=== PATIENT | female | born 1945 | race Caucasian/White ===

== ENCOUNTER → 2017-10-17 15:49 | Outpatient (CLI) | payer MEDICARE, OTHER, SELFPAY | PROVIDERS: Family Provider Family Medicine; PCP Family Medicine; Visit Provider Otolaryngology | DX: J02.9 Acute pharyngitis, unspecified (principal) | CPT/HCPCS: 87070; 87077; 87186 ==

== ENCOUNTER 2018-01-22 05:56 | Day surgery (SDC) | payer MEDICARE, OTHER, SELFPAY ==
--- NOTE | 2018-01-10 14:34 | EKG12_ITS ---
Test Reason : PRE-OP Blood Pressure : / mmHG Vent. Rate : 065 BPM Atrial Rate : 065 BPM P-R Int : 126 ms QRS Dur : 086 ms QT Int : 418 ms P-R-T Axes : 062 -04 036 degrees QTc Int : 434 ms Normal sinus rhythm Normal ECG Confirmed by ARNOLD BROWN, KAILEY ([id number]), research editor ADIA PUGH ([id number] on 01/11/2018 12:56:44 PM Referred By: Alfredo De La O Confirmed By:KAILEY BARRETT MD
[2018-01-10 16:20] LABS: Anion Gap 7 (5-15); BUN 22 mg/dL (7-18); Calcium,Total 8.8 mg/dL (8.5-10.1); Chloride 103 mmol/L (98-107); Creatinine, Serum 1.22 mg/dL (0.55-1.02); EST Glomerular Filtration Rate 46 mL/min (>60); Est Glom Filt Rate - Afr Amer 55 mL/min (>60); Glucose 72 mg/dL (74-106); Potassium 3.3 mmol/L (3.5-5.1); Sodium Level 139 mmol/L (136-145)
[2018-01-22 06:34] VITALS: BP 144/77; PULSE 67; RESP 14; TEMP 36.7; O2SAT 95; BMI 31.1
[2018-01-22 06:34] LABS: Hematocrit 41.2 % (37-47); Hemoglobin 13.7 g/dl (12.0-15.0); Mean Corp Hgb Conc 33.3 g/gl (32-36); Mean Corpuscular Hgb 30.8 pg (27.0-32.0); Mean Corpuscular Volume 92.6 fL (81-99); Mean Platelet Vol. 9.8 fl (6.2-12.0); Platelet Count 245 K/mm3 (150-450); RBC Distribution Width CV 12.9 % (11.6-14.6); RBC Distribution Width SD 43.4 fl (35.1-43.9); Red Blood Count 4.45 M/mm3 (4.2-5.4)
[2018-01-22 06:37] LABS: Scan Indicated on CBC? Y/N NO
[2018-01-22 06:41] LABS: Prothrombin Time (Protime)PT. 13.5 SECONDS (11.7-14.9)
[2018-01-22 06:51] LABS: AST(SGOT) 19 U/L (15-37); Alanine Aminotransfer ALT/SGPT 28 U/L (13-56); Albumin, Serum 3.7 g/dL (3.2-5.0); Alkaline Phosphatase 54 U/L (45-117); Bilirubin, Direct 0.16 mg/dL (0.00-0.30); Globulin 4.2 g/dL (2.2-4.2); Protein, Total 7.9 g/dL (6.4-8.2)
--- NOTE | 2018-01-22 07:30 | MASS_PTH ---
PATIENT: KAYLIE GODWIN [place] [facility] [place][id number] AGE/SX: 72/F ROOM: RE01/22/[address]: Dr. Nito De La O MD : 1945 BED: DIS: 01/22/2018 SPEC #: [id number] RECD: 01/22/18 09:14 STATUS: KATHY REBelinda #: [id number] IJEOMA: 01/22/18 07:[address]: Nito De La O DEPT: SURGICAL PATHOLOGY RECD BY: Yfn Avitia ENTERED: 01/22/18 11:51 SP TYPE: Mass OTHR DR: Dr. Cristian Murphy MD Tissues: A - Ethmoid sinus, NOS B - Ethmoid sinus, NOS C - Ethmoid sinus, NOS Procedures: Decalcification bone/plaque Special Stain Group I Surgery Specimen Level IV GMS Stain (control) HEADER OPERATION: Functional endoscopic sinus surgery PRE-OP DIAGNOSIS: Chronic pansinusitis TISSUE SUBMITTED: A ? Sinus mass, B ? Left sinus contents, C ? Right sinus contents MICROSCOPIC DIAGNOSIS A. Sinus mass, biopsy: Fragment of respiratory mucosa with marked acute and chronic inflammation consistent with benign, inflamed mucosal polyp. B. Left sinus contents: Fragment of respiratory mucosa with acute and chronic inflammation and bone. Special stain for fungi is negative for organisms; matched control is appropriate. C. Right sinus contents: Fragment of respiratory mucosa with chronic inflammation. Benign inflamed mucosal polyp. SJ:eamon 01/25/18 MICROSCOPIC DESCRIPTION Slides are reviewed. GROSS DESCRIPTION A - Received in fixative is one container labeled with the patient's name and designated sinus mass. The specimen consists of a fragment of fagan soft tissue measuring 0.3 x 0.2 x 0.1 cm. The specimen is totally submitted in one cassette. B - Received in fixative is one container labeled with the patient's name and designated left sinus contents. The specimen consists of multiple irregular fragments of fagan soft tissue mixed with fragments of bone that in aggregate measure 3 x 2.5 x 0.3 cm. The entire specimen is submitted in one cassette after decalcification. C - Received in fixative is one container labeled with the patient's name and designated right sinus contents. The specimen consists of multiple irregular fragments of fagan soft tissue mixed with fragments of bone that in aggregate measure 3 x 2.5 x 0.3 cm. Collapsed polypoid tissue is also noted measuring 2 x 1 x 0.2 cm. The entire specimen is submitted in two cassettes. Cassette 2 is submitted after decalcification. / DANIEL:eamon 01/22/18 TC:3 CPT: 59938 x2, 69683 x3, 92288
[2018-01-22] MEDS: Oxymetazoline 0.05% 1 SPRAY SPRAY.BTL 15 SPRAY (07:46)
[2018-01-22 08:51] VITALS: BP 132/74; BP 144/77; PULSE 75; RESP 18; TEMP 36.3; O2SAT 93
[2018-01-22 09:00] VITALS: BP 113/77; BP 144/77; PULSE 73; RESP 18; O2SAT 94
[2018-01-22 09:15] VITALS: BP 132/68; BP 144/77; PULSE 71; RESP 16; O2SAT 96
--- NOTE | 2018-01-22 09:15 | PCM.DC ---
You will use the following diet at home:: No restrictions Discharge Activity: Return to Normal Activity Call your doctor if your incision/area has: Increased Pain/ Swelling Additional Dressing/Incision Instructions:: irrigate with normal saline 5-6 times per day Allergies/Adverse Reactions: Allergies rizatriptan [From Maxalt] Allergy (Verified 01/15/18 14:03) Swelling BEE STINGS Allergy (Uncoded 01/15/18 14:39) Swelling Medications to take at Discharge Aspirin [Aspirin EC] 81 mg PO DAILY 01/15/18 Atenolol/Chlorthalidone [Atenolol-Chlorthalidone 50-25] 1 each PO 1800 01/15/18 Calcium Carbonate [Tums] 750 mg PO DAILY 01/15/18 Cholecalciferol (Vitamin D3) [Vitamin D3] 2,000 unit PO DAILY 01/15/18 Loperamide [Imodium] 2 mg PO Q6H PRN PRN 01/15/18 Multivit-Min/FA/Lycopen/Lutein [Centrum Silver Tablet] 1 each PO DAILY 01/15/18 Simvastatin [Zocor] 40 mg PO QHS 01/15/18 Hydrocodone/Acetaminophen [[place] 5-325 Tablet] 1 ea PO Q6H 5 Days #20 tab 01/22/18 Levofloxacin [Levaquin] 750 mg PO DAILY #10 tab 01/22/18 The following prescriptions were given: Levofloxacin [Levaquin] 750 mg PO DAILY #10 tab Hydrocodone/Acetaminophen [[place] 5-325 Tablet] 1 ea PO Q6H 5 Days #20 tab Primary Care Physician: Cristian Murphy MD [Primary Care Provider] - Test Results: Test results from this visit will be discussed in further detail at your follow-up appointment, if applicable. Please Follow Up With: Louis De La O MD When: 1 week
[2018-01-22 09:21] VITALS: BP 133/70; BP 144/77; PULSE 68; RESP 18; TEMP 36.1; O2SAT 96
--- NOTE | 2018-01-22 09:29 | OP.PCM_ITS ---
Problem List (1) Chronic pansinusitis Status: Chronic Report of Operation Date of Procedure: 01/22/18 Pre-Operative Diagnosis: chronic pansinusitis Post-Operative Diagnosis: chronic pansinusitis Surgery/Procedure Performed:: 1. endoscopic maxillary antrostomy with removal of tissue, right and left. 2. frontal sinus exploration with removal of tissue , right and left. 3. endoscopic total ethmoidectomy including sphenoidotomy, right and left. 4. CT guided image navigation Type of Anesthesia:: General Description of Procedure: on the day of the procedure, after appropriate informed consent was obtained, the patient was brought to the operating room and placed in supine position on the operating table. she was placed under general endotracheal anesthesia. the endotracheal tube was secured, the eyes were lubricated. the image guidance facial registration was setup and landmarks confirmed as accurate. the bilateral nasal cavities were decongested with oxymetazoline-soaked pledgets. the zero degree endoscope was used to evaluate the nasal cavities. there is a caudal septal deflection and a posterior perforation. a small amount of granulation tissue from the left natural sphenoid os was biopsied and sent for permanent sectioning. a large amount of crusting in the right posterior nasal cavity was removed. there were no additional masses. the right and left superior attachment of the middle turbinates were injected with lidocaine/epinephrine. on the patient's left, the acclarent balloon sinuplasty system was introduced to the patients middle meatus. transillumination was seen after the light cord was advanced to the frontal area. the balloon was advanced and dilated to 12 lindsey. frontal sinus contents were removed with an upgoing blakesley. an uncinectomy was performed with a alyson elevator and a geetha. the antrostomy was widened with a back biter and contents were evacuated. the remainder of the ethmoid sinuses were gently removed with a curette and an upgoing blakesley. a stankewicz maneuver was performed and the lamina was intact. the sphenoid sinus was entered bluntly with a suction and widened with a mushroom punch. contents were evacuated. on the patient's left, the acclarent balloon sinuplasty system was introduced to the patients middle meatus. transillumination was seen after the light cord was advanced to the frontal area. the balloon was advanced and dilated to 12 lindsey. frontal sinus contents were removed with an upgoing blakesley. an uncinectomy was performed with a alyson elevator and a geetha. the antrostomy was widened with a back biter and contents were evacuated. the remainder of the ethmoid sinuses were gently removed with a curette and an upgoing blakesley. a stankewicz maneuver was performed and the lamina was intact. the sphenoid sinus was entered bluntly with a suction and widened with a mushroom punch. contents were evacuated. the sinonasal cavities were irrigated with normal saline and the patient was awoken from anesthesia and transferred to the PACU in stable condition.
[2018-01-22 10:20] VITALS: BP 144/77
== END 2018-01-22 10:25 | disposition home or self-care (01) ==
LOC: SDC 05:56 → AC 05:56
PROVIDERS: Anesthesiology; Family Provider Family Medicine; PCP Family Medicine; Visit Provider Otolaryngology
PROC: (CPT 31257; principal; 2018-01-22 07:00)
DX: J32.4 Chronic pansinusitis (principal); I10 Essential (primary) hypertension; G43.909 Migraine, unspecified, not intractable, without status migrainosus; K21.9 Gastro-esophageal reflux disease without esophagitis; E78.00 Pure hypercholesterolemia, unspecified; R23.3 Spontaneous ecchymoses; Z86.14 Personal history of Methicillin resistant Staphylococcus aureus infection
CPT/HCPCS: 31257; 31267; 36415; 80048; 80076; 85027; 85610; 85730; 88305; 88311; 88312; 93005; J7120; J2405

== ENCOUNTER → 2018-05-09 13:03 | Outpatient (CLI) | payer MEDICARE, OTHER, SELFPAY | PROVIDERS: Family Provider Family Medicine; PCP Family Medicine; Referring Provider Otolaryngology; Visit Provider Otolaryngology | DX: J32.9 Chronic sinusitis, unspecified (principal) | CPT/HCPCS: 87070; 87077; 87186; 87205 ==

== ENCOUNTER → 2018-05-21 18:38 | Outpatient (CLI) | payer MEDICARE, OTHER, SELFPAY ==
--- NOTE | 2018-05-21 | LES_PTH ---
PATIENT: KAYLIE GODWIN LOC: [facility] U#:[id number] AGE/SX: 80/F ROOM: RE05/21/[address]: Dr. Salvador Conner MD : 1945 BED: DIS: SPEC #: [id number] RECD: 05/21/18 18:40 STATUS: KATHY ADITHYA #: [id number] IJEOMA: 05/21/18 00:[address]: Salvador Conner DEPT: SURGICAL PATHOLOGY RECD BY: Kym Ashton ENTERED: 05/22/18 11:01 SP TYPE: Lesion OTHR DR: Dr. Cristian Murphy MD Tissues: Skin of eyelid, NOS Procedures: Surgery Specimen Level IV HEADER OPERATION: Lesion removal CARLINE PRE-OP DIAGNOSIS: Increased size and lesion CARLINE TISSUE SUBMITTED: Lesion CARLINE MICROSCOPIC DIAGNOSIS Lesion of left upper eyelid, biopsy: Fragments of squamous papilloma. AM:eamon 11/29/18 MICROSCOPIC DESCRIPTION Slides are reviewed. GROSS DESCRIPTION Received in fixative is one container labeled with the patient's name and designated left upper lid. The specimen consists of a polypoid piece of fagan soft tissue measuring 0.3 x 0.2 x 0.1 cm. The specimen is totally submitted in one cassette. / SJ:rg 05/22/18 TC:5 CPT: 53227
--- OUTSIDE RECORDS SUMMARY | 2018-07-17 09:59 | XMS RPT_ITS ---
:1945 Author Organization OHIP Care Team Providers Name Role Phone GABRIEL NIÑO, DR. WILLOW Ugalde Attending Unavailable GABRIEL NIÑO, DR. WILLOW Ugalde Primary Care Unavailable SUSHANT CASTRO Attending Unavailable GABRIEL NIÑO, DR. WILLOW Ugalde Primary Care Unavailable Louis De La O Attending Unavailable Louis De La O Referring Unavailable Josiah Marr Primary Care Unavailable Louis De La O Attending Unavailable Louis De La O Referring Unavailable WILLOW MURPHY Primary Care Unavailable Aravind Cornejo Attending Unavailable Louis De La O Referring Unavailable Louis De La O Attending Unavailable Louis De La O Referring Unavailable WILLOW MURPHY Primary Care Unavailable Salvador Conner Attending Unavailable WILLOW MURPHY Primary Care Unavailable Salvador Conner Referring Unavailable PROBLEMS PROBLEMS DATE TYPE CONDITION / CODE ATTENDING STATUS SOURCE 01/22/2018 Unknown J32.4 - Chronic Wartmann, Active [facility] pansinusitis / [facility] J32.4(ICD-10) Hospital Repository 01/28/2018 Unknown I10 - Essential Chantal, Aravind Active [facility] (primary) [facility] hypertension / Hospital I10(ICD-10) Repository PROCEDURES PROCEDURES No Procedure Records FoundRESULTS RESULTS LESION (CHOOSE SITE) Observed: 05/21/2018 Status: F Source: LANG 12:00 AM [facility] REPOSITORY Patient: KAYLIE GODWIN : 1945 (73/F) Acct Num: [id number] Phys: Ubaldo BROWN,Salvador Unit Num: [id number] Loc: LABSPEC Specimen: [id number] Received: 05/21/181839 Spec Type: Lesion TISSUES 1 TISSUES: Skin of eyelid, NOS GROSS DESCRIPTION Received in fixative is one container labeled with the patient's name and designated left upper lid. The specimen consists of a polypoid piece of fagan soft tissue measuring 0.3 x 0.2 x 0.1 cm. The specimen is totally submitted in one cassette. / SJ:eamon 05/22/18 TC:5 CPT: 69209 HEADER OPERATION: Lesion removal CARLINE PRE-OP DIAGNOSIS: Increased size and lesion CARLINE TISSUE SUBMITTED: Lesion CARLINE MICROSCOPIC DESCRIPTION Slides are reviewed. MICROSCOPIC DIAGNOSIS Lesion of left upper eyelid, biopsy: Fragments of squamous papilloma. AM:eamon 05/23/18 Signed [facility] 05/23/18 <signature on file> Performed By: #### PLES #### [facility] [address] [place], [address] Observed: 05/09/2018 Status: F Source: LANG CULTURE, NOSE 8:30 AM [facility] REPOSITORY Gram Stain Gram Stain 4+ White Blood Cells Rare Gram positive cocci Nasoph. Cult RESULTS CALLED TO MAISHAENT 05/11/18 0850 Stefany Diaz. REPORT READ BACK BY SAME . Copy of report sent to Infection Control Printer [id number] 05/11/18 0733 GARETH. ORGANISM 1: Meth. resistant Staph. aureus Amount Growth 2+ Meth. resistant Staph. aureus: REACTION Benzylpenicillin NF >=0.5 R Cefoxitin *NF + Clindamycin $$ >=8 R Inducable Clindamycin Resistan - Erythromycin $ >=8 R Gentamicin $ <=0.5 S Levofloxacin $ 4 I Linezolid $$$$ 2 S Oxacillin NF >=4 R Tigecycline $$$$ <=0.12 S Rifampin $$ <=0.5 S Tetracycline NF <=1 S Trimethoprim/Sulfametho $ <=10 S Vancomycin $ 1 S (NF) indicates non-formulary drug at [facility]. Approval by Infectious Disease Specialist required before non-formulary drugs may be ordered and/or dispensed. * CLSI guidelines does not recommend testing of cephalosporins. This interpretation is deduced from Beta-lactam/penicillin results. Performed By: #### M100.0900 #### [facility] [address] [facility] [place], [address] OPERATIVE REPORT Observed: 01/25/2018 Status: F Source: [place] 9:26 [facility] REPOSITORY [facility] Medical Records Department [address] [place] [address] Operative Report 01/22/18 0917 MR#: [id number] Acct: [id number] Name: KAYLIE GODWIN Rep #: [id number] : 1945 72 From: Louis De La O MD PCP: Willow Murphy MD Status: [facility] Location: [facility] Problem List (1) Chronic pansinusitis Status: Chronic Report of Operation Date of Procedure: 01/22/18 Pre-Operative Diagnosis: chronic pansinusitis Post-Operative Diagnosis: chronic pansinusitis Surgery/Procedure Performed:: 1. endoscopic maxillary antrostomy with removal of tissue, right and left. 2. frontal sinus exploration with removal of tissue, right and left. 3. endoscopic total ethmoidectomy including sphenoidotomy, right and left. 4. CT guided image navigation Type of Anesthesia:: General Description of Procedure: on the day of the procedure, after appropriate informed consent was obtained, the patient was brought to the operating room and placed in supine position on the operating table. she was placed under general endotracheal anesthesia. the endotracheal tube was secured, the eyes were lubricated. the image guidance facial registration was setup and landmarks confirmed as accurate. the bilateral nasal cavities were decongested with oxymetazoline-soaked pledgets. the zero degree endoscope was used to evaluate the nasal cavities. there is a caudal septal deflection and a posterior perforation. a small amount of granulation tissue from the left natural sphenoid os was biopsied and sent for permanent sectioning. a large amount of crusting in the right posterior nasal cavity was removed. there were no additional masses. the right and left superior attachment of the middle turbinates were injected with lidocaine/epinephrine. on the patient's left, the acclarent balloon sinuplasty system was introduced to the patients middle meatus. transillumination was seen after the light cord was advanced to the frontal area. the balloon was advanced and dilated to 12 lindsey. frontal sinus contents were removed with an upgoing blakesley. an uncinectomy was performed with a alyson elevator and a geetha. the antrostomy was widened with a back biter and contents were evacuated. the remainder of the ethmoid sinuses were gently removed with a curette and an upgoing blakesley. a stankewicz maneuver was performed and the lamina was intact. the sphenoid sinus was entered bluntly with a suction and widened with a mushroom punch. contents were evacuated. on the patient's left, the acclarent balloon sinuplasty system was introduced to the patients middle meatus. transillumination was seen after the light cord was advanced to the frontal area. the balloon was advanced and dilated to 12 lindsey. frontal sinus contents were removed with an upgoing blakesley. an uncinectomy was performed with a alyson elevator and a geetha. the antrostomy was widened with a back biter and contents were evacuated. the remainder of the ethmoid sinuses were gently removed with a curette and an upgoing blakesley. a stankewicz maneuver was performed and the lamina was intact. the sphenoid sinus was entered bluntly with a suction and widened with a mushroom punch. contents were evacuated. the sinonasal cavities were irrigated with normal saline and the patient was awoken from anesthesia and transferred to the PACU in stable condition. 01/25/18925 <Electronically signed by Louis De La O MD> Date Louis De La O MD CC: Willow Murphy MD; Nito De La O MD Signed DISCHARGE INSTRUCTION Observed: 01/22/2018 Status: F Source: [place] 9:16 AM [facility] REPOSITORY [facility] Medical Records Department [address] [facility] [place] [address] Instructions for Home/Discharge Instructions 01/22/18914 MR#: [id number] Acct: [id number] Name: KAYLIE GODWIN Rep #: [id number] : 1945 72 From: Louis De La O MD PCP: Willow Murphy MD Status: REG [facility] You will use the following diet at home:: No restrictions Discharge Activity: Return to Normal Activity Call your doctor if your incision/area has: Increased Pain/ Swelling Additional Dressing/Incision Instructions:: irrigate with normal saline 5-6 times per day Allergies/Adverse Reactions: Allergies rizatriptan [From Maxalt] Allergy (Verified 01/15/18 14:03) Swelling BEE STINGS Allergy (Uncoded 01/15/18 14:39) Swelling Medications to take at Discharge Aspirin [Aspirin EC] 81 mg PO DAILY 01/15/18 Atenolol/Chlorthalidone [Atenolol-Chlorthalidone 50-25] 1 each PO 1800 01/15/18 Calcium Carbonate [Tums] 750 mg PO DAILY 01/15/18 Cholecalciferol (Vitamin D3) [Vitamin D3] 2,000 unit PO DAILY 01/15/18 Loperamide [Imodium] 2 mg PO Q6H PRN PRN 01/15/18 Multivit-Min/FA/Lycopen/Lutein [Centrum Silver Tablet] 1 each PO DAILY 01/15/18 Simvastatin [Zocor] 40 mg PO QHS 01/15/18 Hydrocodone/Acetaminophen [Darlington 5-325 Tablet] 1 ea PO Q6H 5 Days #20 tab 01/22/18 Levofloxacin [Levaquin] 750 mg PO DAILY #10 tab 01/22/18 The following prescriptions were given: Levofloxacin [Levaquin] 750 mg PO DAILY #10 tab Hydrocodone/Acetaminophen [Darlington 5-325 Tablet] 1 ea PO Q6H 5 Days #20 tab Primary Care Physician: Willow Murphy MD [Primary Care Provider] - Test Results: Test results from this visit will be discussed in further detail at your follow-up appointment, if applicable. Please Follow Up With: Louis De La O MD When: 1 week 01/22/18915 <Electronically signed by Louis De La O MD> Date Louis De La O MD CC: Willow Murphy MD MASS (DEFINE AREA) Observed: 01/22/2018 Status: F Source: LANG 7:30 AM [facility] REPOSITORY Patient: KAYLIE GODWIN : 1945 (72/F) Acct Num: [id number] Phys: Nito De La O MD Unit Num: [id number] Loc: [facility] Specimen: [id number] Received: 01/22/18913 Spec Type: Mass TISSUES TISSUES: A. Ethmoid sinus, NOS - SINUS MASS B. Ethmoid sinus, NOS - LEFT SINUS CONTENTS C. Ethmoid sinus, NOS - RIGHT SINUS CONTENTS GROSS DESCRIPTION A - Received in fixative is one container labeled with the patient's name and designated sinus mass. The specimen consists of a fragment of fagan soft tissue measuring 0.3 x 0.2 x 0.1 cm. The specimen is totally submitted in one cassette. B - Received in fixative is one container labeled with the patient's name and designated left sinus contents. The specimen consists of multiple irregular fragments of fagan soft tissue mixed with fragments of bone that in aggregate measure 3 x 2.5 x 0.3 cm. The entire specimen is submitted in one cassette after decalcification. C - Received in fixative is one container labeled with the patient's name and designated right sinus contents. The specimen consists of multiple irregular fragments of fagan soft tissue mixed with fragments of bone that in aggregate measure 3 x 2.5 x 0.3 cm. Collapsed polypoid tissue is also noted measuring 2 x 1 x 0.2 cm. The entire specimen is submitted in two cassettes. Cassette 2 is submitted after decalcification. / SJ:eamon 01/22/18 TC:3 CPT: 77204 x2, 95968 x3, 71870 HEADER OPERATION: Functional endoscopic sinus surgery PRE-OP DIAGNOSIS: Chronic pansinusitis TISSUE SUBMITTED: A Sinus mass, B Left sinus contents, C Right sinus contents MICROSCOPIC DESCRIPTION Slides are reviewed. MICROSCOPIC DIAGNOSIS A. Sinus mass, biopsy: Fragment of respiratory mucosa with marked acute and chronic inflammation consistent with benign, inflamed mucosal polyp. B. Left sinus contents: Fragment of respiratory mucosa with acute and chronic inflammation and bone. Special stain for fungi is negative for organisms; matched control is appropriate. C. Right sinus contents: Fragment of respiratory mucosa with chronic inflammation. Benign inflamed mucosal polyp. SJ:eamon 01/25/18 Signed Gato Gray 01/28/18 <signature on file> Performed By: #### PMA #### [facility] [address] [place] [address]. [place], [address] CBC-COMPLETE BLOOD CNT Collected: 01/22/2018 Status: F Source: [place] NO DIFF 6:28 AM [facility] REPOSITORY TYPE CODE TESTS RESULT OUT OF RANGE REFERENCE UNITS LAB L100.1000 4.4-11.0 K/mm3 Normal WBC 6.0 LAB L100.1200 4.2-5.4 M/mm3 Normal RBC 4.45 LAB L100.1300 12.0-15.0 g/dl Normal HGB 13.7 LAB L100.1400 37-47 % Normal HCT 41.2 LAB L100.1500 81-99 fL Normal MCV 92.6 LAB L100.1600 27.0-32.0 pg Normal MCH 30.8 LAB L100.1700 32-36 g/gl Normal MCHC 33.3 LAB L100.1810 11.6-14.6 % Normal RDW CV 12.9 LAB L100.1820 35.1-43.9 fl Normal RDW SD 43.4 LAB L100.1900 150-450 K/mm3 Normal PLT 245 LAB L100.2000 6.2-12.0 fl Normal MPV 9.8 Performed By: #### L100.0500, L300.3900, L300.4310, L500.3400 #### [facility] [address] [place], [place], [address] PROTHROMBIN TIME W/INR Collected: 01/22/2018 Status: F Source: [place] 6:28 AM [facility] REPOSITORY TYPE CODE TESTS RESULT OUT OF RANGE REFERENCE UNITS LAB L300.4150 11.7-14.9 SECONDS Normal PROTIME 13.5 LAB L300.4200 Normal INR 1.0 Performed By: #### L100.0500, L300.3900, L300.4310, L500.3400 #### [facility] [address] [place], [address] PARTIAL THROMBOPLAST Collected: 01/22/2018 Status: F Source: [place] TIME 6:28 [facility] REPOSITORY TYPE CODE TESTS RESULT OUT OF RANGE REFERENCE UNITS LAB L300.4310 24.1-36.2 Seconds Normal PTT 27.0 Performed By: #### L100.0500, L300.3900, L300.4310, L500.3400 #### [facility] [address] [place], [place], [address] LIVER PROFILE Collected: 01/22/2018 Status: F Source: [place] 6:28 AM [facility] REPOSITORY TYPE CODE TESTS RESULT OUT OF RANGE REFERENCE UNITS LAB L501.1500 6.4-8.2 g/dL Normal T PROT 7.9 LAB L501.1800 3.2-5.0 g/dL Normal ALB 3.7 LAB L501.1950 2.2-4.2 g/dL Normal GLOB 4.2 LAB L501.4100 15-37 U/L Normal AST 19 LAB L501.4305 45-117 U/L Normal ALK P 54 LAB L501.4405 13-56 U/L Normal ALT 28 LAB L501.4600 0.20-1.00 mg/dL Normal T BILI 0.60 LAB L501.4700 0.00-0.30 mg/dL Normal D BILI 0.16 Performed By: #### L100.0500, L300.3900, L300.4310, L500.3400 #### [facility] [address] [facility] [place], [address] 12 LEAD ELECTROCARDIOGRAM Observed: 01/11/2018 Status: F Source: [place] 12:57 PM [facility] REPOSITORY [facility] Cardiovascular Services [address] [place] [address] 12 Lead EKG 01/10/18 1440 MR#: [id number] Acct: [id number] Name: KAYLIE GODWIN Rep #: [id number] : 1945 72 From: Aravind Cornejo MD Attending Dr: Nito De La O MD Status: PRE SDC Ordering Dr: Louis De La O MD Date: 01/10/18 Location: [facility] Sex: F C Admitted: Test Reason : PRE-OP Blood Pressure : / mmHG Vent. Rate : 065 BPM Atrial Rate : 065 BPM P-R Int : 126 ms QRS Dur : 086 ms QT Int : 418 ms P-R-T Axes : 062 -04 036 degrees QTc Int : 434 ms Normal sinus rhythm Normal ECG Confirmed by ARAVIND CORNEJO MD ([id number]), editor in chief newspaper ADIA PUGH ([id number]) on 01/11/2018 12:56:44 PM Referred By: Alfredo De La O Confirmed By:ARAVIND CORNEJO MD 01/11/18 1256 Date Aravind Cornejo MD CC: Willow Murphy MD; Nito De La O MD Signed BASIC METABOLIC Collected: 01/10/2018 Status: F Source: LANG PROFILE (BMP) 2:27 PM [facility] REPOSITORY TYPE CODE TESTS RESULT OUT OF RANGE REFERENCE UNITS LAB L501.0100 74-106 mg/dL Low GLU 72 Result Comment: Please note revised GLUCOSE reference range effective 2017. LAB L501.1000 7-18 mg/dL High BUN 22 LAB L501.1100 0.55-1.02 mg/dL High CREAT,SERUM 1.22 Result Comment: The validity of the calculated GFR AND GFRAA in patients over 70 years has not been determined. Clinical correlation is essential. LAB L501.1110 >60 mL/min Low EST GFR 46 Result Comment: Non- GFR Calc LAB L501.1115 >60 mL/min Low EST GFR - AA 55 Result Comment: GFR Calc LAB L501.1300 10-20 RATIO Normal BUN/CRE 18.0 LAB L501.2200 8.5-10.1 mg/dL CA Normal 8.8 LAB L501.5300 136-145 mmol/L NA Normal 139 LAB L501.5600 3.5-5.1 mmol/L Low K 3.3 LAB L501.5900 98-107 mmol/L CL Normal 103 LAB L501.6100 21.0-32.0 mmol/L Normal CO2 29.0 LAB L501.6200 5-15 Normal GAP 7 Performed By: #### L500.2500 #### [facility] [address] [place], [address] Observed: 10/17/2017 Status: F Source: [place] CULTURE, THROAT 1:50 PM [facility] REPOSITORY Culture, Throat Copy of report sent to Infection Control Printer [id number] 10/20/17 0702 BARBARA. #2 Penicillin is the drug of choice for Beta Streptococcal infections. For Penicillin allergic patients, Erythromycin may be used. ORGANISM 1: Meth. resistant Staph. aureus Amount Growth 3+ ORGANISM 2: Streptococcus group A Amount Growth 1+ A Disk (Conf. Cult) POSITIVE for Group A Strep Meth. resistant Staph. aureus: REACTION Benzylpenicillin NF >=0.5 R Cefoxitin *NF + Clindamycin $$ >=8 R Inducable Clindamycin Resistan - Erythromycin $ >=8 R Gentamicin $ <=0.5 S Levofloxacin $ 4 I Linezolid $$$$ 2 S Oxacillin NF >=4 R Tigecycline $$$$ <=0.12 S Rifampin $$ <=0.5 S Tetracycline NF <=1 S Trimethoprim/Sulfametho $ <=10 S Vancomycin $ <=0.5 S (NF) indicates non-formulary drug at [facility]. Approval by Infectious Disease Specialist required before non-formulary drugs may be ordered and/or dispensed. * CLSI guidelines does not recommend testing of cephalosporins. This interpretation is deduced from Beta-lactam/penicillin results. Performed By: #### M100.1000 #### [facility] [address] [place], [address] CT SINUS Observed: 07/18/2017 Status: F Source: [place] 1:00 PM [facility] RE[facility] ORIGINAL CT SINUS Clinical Statement: CHRONIC SINUSITIS, patient unable to smell for 2 years TECHNIQUE: Multiple-row detector helical CT examination of the paranasal sinuses without IV contrast. Axial, sagittal, and coronal reconstructed images. This exam was performed according to our [facility] dose optimization program, and includes the following measures where applicable: automated exposure control, adjustment of the mAs and/or kVp according to patient size and/or exam, and an iterative reconstruction algorithm. COMPARISON: CTA neck dated 05/03/2010 FINDINGS: Patient is status post ethmoidectomy. There is a small mucoid retention cyst in the right posterior maxillary sinus. The right maxillary ostiomeatal unit is patent. There is moderate polypoid mucosal disease of the residual ethmoid air cell s. The right sphenoid sinus is patent. There is near complete opacification of the right frontal sinus. The right frontal outflow tract is patent. There is moderate polypoid mucosal thickening of the left ethmoid air cells. The left maxillary, sphenoid, and frontal sinuses are clear. The left maxillary ostiomeatal unit and left frontal outflow tract are patent. The bilateral lamina papyracea are not well-visualized but no invasive changes are seen extending into the orbits bilaterally. No abnormal soft tissue is noted within the retroantral fat or premaxillary soft tissues. The nasal septum is deviated to the left. Bilaterally, cribriform plate, and ethmoid roofs are intact. Evaluation of the nasopharynx demonstrates no masses. The visualized intracranial structures, orbits, and tympanomastoid cavities demonstrate no abnormality. IMPRESSION: Ethmoidectomy changes with moderate polypoid mucosal disease of the residual ethmoid air cells bilaterally. The lamina papyracea are not well visualized. No invasive changes are seen extending into the orbit. I have personally reviewed the images of this examination and agree with the resident's findings and interpretation. Interpreted By: Ricardo Gupta MD Preliminary Report By: Kika Steward DO Electronically Signed By: Ricardo Gupta MD Dictated Date: 07/18/2017 1:39:19 PM Prelim Date: 07/18/2017 3:14:23 PM Sign Date: 07/18/2017 3:52:45 PM ALLERGIES ALLERGIES DATE TYPE / CODE NAME / CODE REACTION SEVERITY SOURCE 01/15/2018 Drug rizatriptan/ Swelling Unknown [facility] Allergy/837678689(S [id number](R Community NOMED CT) XNORM) Hospital Repository 01/15/2018 Miscellaneous BEE STINGS Swelling Unknown [facility] Allergy/472356068(S Community NOM[facility] CT) Hospital Repository ENCOUNTERS ENCOUNTERS ADMIT/DISCHARGE ACCOUNT NUMBER ADMITTING ENCOUNTER LOCATION SOURCE CLASS 05/21/2018 [id number] Ambulatory [facility] ding:LABSPEC Repository 05/09/2018 [id number] Ambulatory [facility] ding:LABSPEC Repository 01/22/2018/01/23/20 [id number] Ambulatory [address] ding:[place] Repository 01/10/2018 [id number] Ambulatory BMSBuilding: [facility] Repository 01/08/2018/01/09/20 [id number] Emergency BBuilding:[address] Repository 10/17/2017 [id number] Ambulatory [facility] ding:LABSPEC Repository 07/18/2017/07/18/19 [id number] Ambulatory [address] ding:[facility] Repository PAYERS PAYERS ENCOUNTER GUARANTOR PAYER SUBSCRIBER SOURCE 05/21/2018 KAYLIE De Los Santos Primary KAYLIE [id number] Insurance:MEDICARE AUKERMANDOB: Community HIGH PART A BPolicy [place]: [id number] [id number] Repository [address]Jvi: (330) Date:2018-05-21 [id number] () 05/21/2018 Secondary KAYLIE A Lang Insurance:AARPPolicy AUKERMANDOB: Community Number: [id number] Hospital [id number] Repository Date:[id number], [place] [address]ZF: 05/21/2018 Tertiary NOT GIVENUNK [facility] Insurance:SELF PAY [facility]: Effective Repository Date:2018-05-21 05/09/2018 KAYLIE A Primary KAYLIE A Harper [id number] Insurance:MEDICARE AUKERMANDOB: Community HIGH PART A BPolicy Number: [id number] [id number] Repository [address]Znn: (330) Date:2018-05-096824 () 05/09/2018 Secondary KAYLIE A Lang Insurance:AARPPolicy AUKERMANDOB: Community Number: [id number] Hospital [id number] Repository Date:[id number], [place] [address]QE: 05/09/2018 Tertiary NOT GIVENUNK [facility] Insurance:SELF PAY [facility] Number: Effective Repository Date:2018-05-09 01/22/2018 Kaylie A Primary Kaylie A Lang [id number] Insurance:MEDICARE AukermanDOB: Community High PART A BPolicy Number: [id number] [id number] Repository [address]Dsq: (330) Date:2018-01-023050 () 01/22/2018 Secondary Kaylie A Lang Insurance:AARPPolicy AukermanDOB: Community Number: [id number] Hospital [id number] Repository Date:[id number], [place] [address]CN: 01/22/2018 Tertiary NOT GIVENUNK [facility] Insurance:SELF PAY [facility] Number: Effective Repository Date:2018-01-02 01/10/2018 Kaylie De Los Santos Primary Kaylie Winteroster [id number] Insurance:MEDICARE AukermanDOB: [facility] PART A BPolicy Number: [id number], [place] [id number] Repository [address]Ryn: 330) Date:2018-01-02 [phone] () 01/10/2018 Secondary Kaylie De Los Santos Harper Insurance:AARPPolicy AukermanDOB: Community Health Number: [id number] Hospital [id number] Repository Date:[id number], [place] [address]ME: 01/10/2018 Tertiary NOT GIVENUNK Harper Insurance:SELF PAY [facility] Number: Effective Repository Date:2018-01-10 01/08/2018 KAYLIE De Los Santos Primary KAYLIE De Los Santos [facility] AUKERMANDOB: Insurance:MEDICARE AUKERMANDOB: Foundation [id number] PART BPolicy Number: [id number] Repository [facility] [id number] [address] [place], [place] Date:2018-01-08 [place], [place] [address]Fkq: [phone] [id number]: () Name:[facility] [id number] Administrators [facility] ()Tel: ([phone]) Pvu [address]Ovyrqitxf, [place] [phone] () [address]WP: 01/08/2018 Secondary KAYLIE [facility] Insurance:[employer]ARP UNITED AUKERMANDOB: Foundation [facility]SECOND[facility] [id number] Repository ONLYPolicy Number: 0 [facility] [id number] [place], [place] Date:2018-01-08 [address]Ltf: [phone] Name:EDGE STAINER Box (HP)Tel: [phone]) [phone] [place] 000-0000 () [phone]: 10/17/2017 Kaylie De Los Santos Primary Kaylie Winteroster [id number] Insurance:MEDICARE AukermanDOB: [facility] PART A BPolicy Number: [id number] [place], [place] [id number] Repository 85982Qrz: ([phone]) Date:2017-10-17 [phone] () 10/17/2017 Secondary Kaylie De Los Santos Harper Insurance:AARPPolicy AukermanDOB: Community Number: [id number] [id number] Repository Date:[id number], [place] [address]JN: 10/17/2017 Tertiary NOT GIVENUNK Harper Insurance:SELF PAY [facility]: Effective Repository Date:2017-10-17 07/18/2017 KAYLIE De Los Santos Primary KAYLIE De Los Santos [facility] AUKERMANDOB: Insurance:MEDICARE AUKERMANDOB: Foundation [id number] PART BPolicy Number: [id number] Repository [facility] [id number] 0 [place], [place] Date:2017-07-16 [place], [place] [address]Atd: [phone] [phone]: () Name:[place] [address] Administrators LLCPO ()Tel: (000) [address]Yqyeqiw[place], [place] 000-0000 () [phone]: 07/18/2017 Secondary [facility]:AARP UNITED AUKERMANDOB: [facility] [id number] Repository Number: 0 [facility] [id number] [place], [place] Date:2017-07-16 [address]Yrd: [phone] Name:EDGE STAINER Box (HP)Tel: [phone]) [phone], [place] 000-0000 (QR) [phone]:
== END ==
PROVIDERS: Family Provider Family Medicine; PCP Family Medicine; Referring Provider Ophthalmology; Visit Provider Ophthalmology
DX: D23.121 Other benign neoplasm of skin of left upper eyelid, including canthus (principal)
CPT/HCPCS: 88305

== ENCOUNTER → 2018-08-06 13:14 | Outpatient (CLI) | payer MEDICARE, OTHER, SELFPAY ==
--- NOTE | 2018-08-06 13:18 | CT_ITS ---
STUDY: CT MAXILLOFACIAL SINUSES REASON FOR EXAM: Female, 73 years old. Sinusitis RADIATION DOSAGE (If Supplied By Facility): CTDIvol = ( 33.45 ) mGy, DLP = ( 759.64 ) mGycm TECHNIQUE: The patient was scanned in a multi detector CT scanner. High resolution axial imaging was performed without the administration of intravenous contrast material. Sagittal and coronal images were reconstructed. Individualized dose optimization techniques were used for this CT. COMPARISON: None. FINDINGS: FRONTAL SINUSES: Mild to moderate mucoperiosteal thickening. ETHMOIDAL SINUSES: Postoperative change from bilateral ethmoidectomy. Moderate mucoperiosteal thickening of the remaining ethmoid air cells. MAXILLARY SINUSES: Postoperative change from bilateral antrectomy. Mild mucoperiosteal thickening. SPHENOIDAL SINUSES: Moderate mucoperiosteal thickening and fluid. Normal bilateral middle turbinates. Normal bilateral inferior turbinates. Normal midline nasal septum. There is patency of the bilateral nasal airways. Mastoid air cells are well-pneumatized. The visualized osseous structures are normal. The visualized bilateral orbital contents are normal. CT/Sinus/Facial Bone IMPRESSION: Mild to moderate chronic paranasal sinus disease Electronically Signed: Roberth Bardales MD at 3:42 EST Tel , Service support ,
== END ==
PROVIDERS: Family Provider Family Medicine; PCP Family Medicine; Referring Provider Otolaryngology; Visit Provider Otolaryngology
DX: J32.9 Chronic sinusitis, unspecified (principal)
CPT/HCPCS: 70486

== ENCOUNTER → 2018-08-22 16:09 | Outpatient (CLI) | payer MEDICARE, OTHER, SELFPAY ==
--- NOTE | 2018-08-22 09:00 | NASAL_PTH ---
PATIENT: KAYLIE GODWIN LOC: [facility] U#:[id number] AGE/SX: 80/F ROOM: RE08/22/[address]: Dr. Nito De La O MD : 1945 BED: DIS: SPEC #: [id number] RECD: 08/22/18 15:35 STATUS: KATHY ADITHYA #: [id number] IJEOMA: 08/22/18 09:[address]: Nito De La O DEPT: SURGICAL PATHOLOGY RECD BY: Yfn Avitia ENTERED: 08/23/18 11:36 SP TYPE: NASAL SPEC OTHR DR: Dr. Cristian Murphy MD Tissues: Nasopharynx, NOS Procedures: Surgery Specimen Level IV HEADER OPERATION: Nasopharyngeal biopsy PRE-OP DIAGNOSIS: Rule out Manuel's TISSUE SUBMITTED: Nasopharyngeal biopsy MICROSCOPIC DIAGNOSIS Nasopharyngeal biopsy: A minute fragment of respiratory mucosa with underlying lymphoid tissue with reactive changes. Changes consistent with Manuel's granulomatosis are not seen. See comment. DANIEL:eamon 08/26/18 COMMENT The specimen may represents tonsillar tissue. Rebiopsy is suggested if clinically indicated. Clinical correlation and appropriate follow up are necessary. Case has been reviewed in consultation with Dr. Gates who concurs with the above diagnosis. IDC:AM MICROSCOPIC DESCRIPTION Slides are reviewed. GROSS DESCRIPTION Received in fixative is one container labeled with the patient's name and designated nasopharyngeal biopsy. The specimen consists of a fragment of fagan soft tissue measuring 0.3 x 0.2 x 0.1 cm. The specimen is totally submitted in one cassette. / DANIEL:eamon 08/23/18 TC:5 CPT: 54384
== END ==
PROVIDERS: Family Provider Family Medicine; PCP Family Medicine; Referring Provider Otolaryngology; Visit Provider Otolaryngology
DX: M31.30 Wegener's granulomatosis without renal involvement (principal)
CPT/HCPCS: 88305

== ENCOUNTER → 2018-10-15 10:05 | Outpatient (CLI) | payer MEDICARE, OTHER, SELFPAY ==
[2018-10-15 12:33] LABS: Absolute Lymphocyte Count 2.37 X10^3/ul (0.83-4.51); Absolute Neutrophil Count 4.7 X10^3/uL (2.0-7.7); Basophil# 0.04 X10^3/uL; Basophil% 0.5 % (0-1); Color, Urine Yellow (Yellow); Eosinophil# 0.15 X10^3/uL; Eosinophils% 1.9 % (0-5); Glucose, Dipstick Normal (Normal); Hematocrit 43.6 % (37-47); Hemoglobin 14.8 g/dl (12.0-15.0); Ketone-Dipstick Negative (Negative); Leukocyte Esterase-Dipstick 25 /ul (Negative); Lymphocyte # 2.37 X10^3/ul (4.0); Lymphocyte % 30.6 % (19-41); Mean Corp Hgb Conc 33.9 g/gl (32-36); Mean Corpuscular Hgb 30.7 pg (27.0-32.0); Mean Corpuscular Volume 90.5 fL (81-99); Mean Platelet Vol. 10.1 fl (6.2-12.0); Monocyte# 0.53 X10^3/uL; Monocyte% 6.8 % (0-10); Neutrophil # 4.65 X10^3/uL (2.7-7.7); Neutrophil % 60.1 % (47-70); Nitrite-Dipstick Negative (Negative); Occult Blood-Urine Negative /ul (Negative); Platelet Count 261 K/mm3 (150-450); Protein-Dipstick Negative (Negative); RBC Distribution Width CV 12.9 % (11.6-14.6); RBC Distribution Width SD 42.5 fl (35.1-43.9); Red Blood Count 4.82 M/mm3 (4.2-5.4); Urine Bilirubin Dipstick Negative (Negative); Urine Clarity Sl. Cloudy (Clear); Urine Urobilinogen Normal (Normal); Urine pH 6.5 (5.0 - 8.0); White Blood Count 7.8 K/mm3 (4.4-11.0)
[2018-10-15 12:43] LABS: POSITIVE COUNT NO; POSITIVE DIFFERENTIAL NO; POSITIVE MORPHOLOGY NO
[2018-10-15 12:44] LABS: ALB/GLOB Ratio 0.9 RATIO (0.9-2.4); AST(SGOT) 32 U/L (15-37); Alanine Aminotransfer ALT/SGPT 41 U/L (13-56); Alkaline Phosphatase 66 U/L (45-117); Anion Gap 10 (5-15); BUN 17 mg/dL (7-18); BUN/Creat Ratio 19.1 RATIO (10-20); CRP 6.49 mg/L (0.0-3.0); Calcium,Total 9.7 mg/dL (8.5-10.1); Chloride 99 mmol/L (98-107); Creatinine, Serum 0.89 mg/dL (0.55-1.02); EST Glomerular Filtration Rate 66 mL/min (>60); Est Glom Filt Rate - Afr Amer 80 mL/min (>60); Globulin 4.4 g/dL (2.2-4.2); Glucose 92 mg/dL (74-106); Potassium 3.3 mmol/L (3.5-5.1); Protein, Total 8.4 g/dL (6.4-8.2); Rheumatoid Factor < 10.0 IU/mL (<15); Sodium Level 140 mmol/L (136-145)
[2018-10-15 12:49] LABS: Protein, Urine (Random) 17.7 mg/dL (<11.9); Protein:Creat Ratio 68 mg/g CRE (0-200)
[2018-10-15 15:18] LABS: Erythrocyte Sedimentation Rate 25 mm/hr (0-30)
[2018-10-16 12:06] LABS: SJOGREN'S Anti-SS-A test < 0.2 AI (0.0-0.9); SJOGREN'S Anti-SS-B test < 0.2 AI (0.0-0.9)
[2018-10-16 14:30] LABS: ANTINUCLEAR ANTIBODIES DIRECT Negative (Negative)
[2018-10-17 12:40] LABS: CCP IgG Antibodies 6 units (0-19); HEPATITIS B SURFACE AG Negative (Negative); Hep B Surface Antibodies Non Reactive (.); Hep C Antibodies <0.1 s/co ratio (0.0-0.9)
== END ==
PROVIDERS: Family Provider Family Medicine; PCP Family Medicine; Referring Provider Internal Medicine Rheumatology; Visit Provider Internal Medicine Rheumatology
DX: M06.4 Inflammatory polyarthropathy (principal); M17.0 Bilateral primary osteoarthritis of knee
CPT/HCPCS: 36415; 80053; 81002; 82570; 84156; 85025; 85652; 86038; 86140; 86200; 86235; 86431; 86706; 86803; 87340

== ENCOUNTER → 2018-12-09 15:40 | Outpatient (CLI) | payer MEDICARE, OTHER, SELFPAY ==
[2018-12-09 17:38] LABS: Absolute Lymphocyte Count 2.22 X10^3/ul (0.83-4.51); Absolute Neutrophil Count 5.2 X10^3/uL (2.0-7.7); Basophil# 0.03 X10^3/uL; Basophil% 0.4 % (0-1); Eosinophil# 0.19 X10^3/uL; Eosinophils% 2.3 % (0-5); Hemoglobin 14.6 g/dl (12.0-15.0); Lymphocyte # 2.22 X10^3/ul (4.0); Lymphocyte % 27.1 % (19-41); Mean Corpuscular Hgb 30.1 pg (27.0-32.0); Mean Corpuscular Volume 88.7 fL (81-99); Mean Platelet Vol. 10.2 fl (6.2-12.0); Monocyte# 0.52 X10^3/uL; Monocyte% 6.4 % (0-10); Neutrophil % 63.6 % (47-70); Platelet Count 289 K/mm3 (150-450); RBC Distribution Width CV 12.8 % (11.6-14.6); RBC Distribution Width SD 41.3 fl (35.1-43.9); Red Blood Count 4.85 M/mm3 (4.2-5.4); White Blood Count 8.2 K/mm3 (4.4-11.0)
[2018-12-09 17:58] LABS: POSITIVE COUNT NO; POSITIVE DIFFERENTIAL NO; POSITIVE MORPHOLOGY NO
[2018-12-09 18:01] LABS: ALB/GLOB Ratio 0.8 RATIO (0.9-2.4); AST(SGOT) 24 U/L (15-37); Alanine Aminotransfer ALT/SGPT 35 U/L (13-56); Albumin, Serum 3.7 g/dL (3.2-5.0); Alkaline Phosphatase 66 U/L (45-117); Anion Gap 10 (5-15); BUN 19 mg/dL (7-18); BUN/Creat Ratio 21.7 RATIO (10-20); Calcium,Total 10.1 mg/dL (8.5-10.1); Chloride 100 mmol/L (98-107); Creatinine, Serum 0.88 mg/dL (0.55-1.02); EST Glomerular Filtration Rate 67 mL/min (>60); Est Glom Filt Rate - Afr Amer 81 mL/min (>60); Globulin 4.6 g/dL (2.2-4.2); Glucose 95 mg/dL (74-106); Potassium 3.3 mmol/L (3.5-5.1); Protein, Total 8.3 g/dL (6.4-8.2); Sodium Level 139 mmol/L (136-145)
[2018-12-12 16:07] LABS: Red Blood Cell Count Test/G6PD 4.71 x10E6/uL (3.77-5.28)
[2018-12-12 16:30] LABS: G6PD Quant Test 342 (146-376)
== END ==
PROVIDERS: Family Provider Family Medicine; PCP Family Medicine; Referring Provider Internal Medicine Rheumatology; Visit Provider Internal Medicine Rheumatology
DX: M06.4 Inflammatory polyarthropathy (principal); M17.0 Bilateral primary osteoarthritis of knee; E78.5 Hyperlipidemia, unspecified; R51 Headache; I10 Essential (primary) hypertension; I34.1 Nonrheumatic mitral (valve) prolapse
CPT/HCPCS: 36415; 80053; 82955; 85025

== ENCOUNTER → 2019-01-14 15:31 | Outpatient (CLI) | payer MEDICARE, OTHER, SELFPAY ==
[2019-01-14 17:43] LABS: Absolute Neutrophil Count 4.8 X10^3/uL (2.0-7.7); Basophil# 0.05 X10^3/uL; Basophil% 0.7 % (0-1); Eosinophil# 0.18 X10^3/uL; Eosinophils% 2.4 % (0-5); Hematocrit 41.4 % (37-47); Hemoglobin 13.8 g/dL (12.0-15.0); Lymphocyte % 26.4 % (19-41); Mean Corp Hgb Conc 33.3 g/dL (32-36); Mean Corpuscular Hgb 30.7 pg (27.0-32.0); Mean Platelet Vol. 9.8 fl (6.2-12.0); Monocyte% 6.6 % (0-10); NRBC Flagged by Analyzer 0 % (0-5); Neutrophil # 4.82 X10^3/uL (2.7-7.7); Neutrophil % 63.5 % (47-70); Platelet Count 288 K/mm3 (150-450); RBC Distribution Width CV 12.4 % (11.6-14.6); RBC Distribution Width SD 41.8 fl (35.1-43.9); White Blood Count 7.6 K/mm3 (4.4-11.0)
[2019-01-14 18:02] LABS: ALB/GLOB Ratio 0.8 RATIO (0.9-2.4); AST(SGOT) 22 U/L (15-37); Alanine Aminotransfer ALT/SGPT 34 U/L (13-56); Albumin, Serum 3.7 g/dL (3.2-5.0); Alkaline Phosphatase 64 U/L (45-117); Anion Gap 9 (5-15); BUN 19 mg/dL (7-18); BUN/Creat Ratio 20.9 RATIO (10-20); Calcium,Total 9.3 mg/dL (8.5-10.1); Chloride 102 mmol/L (98-107); Creatinine, Serum 0.91 mg/dL (0.55-1.02); EST Glomerular Filtration Rate 64 mL/min (>60); Est Glom Filt Rate - Afr Amer 78 mL/min (>60); Globulin 4.4 g/dL (2.2-4.2); Glucose 88 mg/dL (74-106); Potassium 2.9 mmol/L (3.5-5.1); Protein, Total 8.1 g/dL (6.4-8.2); Sodium Level 140 mmol/L (136-145)
== END ==
PROVIDERS: Family Provider Family Medicine; PCP Family Medicine; Referring Provider Internal Medicine Rheumatology; Visit Provider Internal Medicine Rheumatology
DX: M06.4 Inflammatory polyarthropathy (principal); M17.0 Bilateral primary osteoarthritis of knee; E78.5 Hyperlipidemia, unspecified; R51 Headache; I10 Essential (primary) hypertension; I34.1 Nonrheumatic mitral (valve) prolapse
CPT/HCPCS: 36415; 80053; 85025

== ENCOUNTER → 2019-04-17 12:48 | Outpatient (CLI) | payer MEDICARE, OTHER, SELFPAY ==
[2019-04-17 14:21] LABS: Absolute Lymphocyte Count 1.54 X10^3/uL (0.83-4.51); Absolute Neutrophil Count 3.7 X10^3/uL (2.0-7.7); Basophil# 0.04 X10^3/uL; Basophil% 0.7 % (0-1); Eosinophil# 0.19 X10^3/uL; Eosinophils% 3.2 % (0-5); Hematocrit 40.7 % (37-47); Hemoglobin 13.6 g/dL (12.0-15.0); Lymphocyte # 1.54 X10^3/ul (4.0); Lymphocyte % 26.2 % (19-41); Mean Corp Hgb Conc 33.4 g/dL (32-36); Mean Corpuscular Hgb 30.3 pg (27.0-32.0); Mean Corpuscular Volume 90.6 fL (81-99); Monocyte# 0.41 X10^3/uL; NRBC Flagged by Analyzer 0 % (0-5); Neutrophil # 3.69 X10^3/uL (2.7-7.7); Neutrophil % 62.7 % (47-70); Platelet Count 254 K/mm3 (150-450); RBC Distribution Width CV 12.5 % (11.6-14.6); RBC Distribution Width SD 41.3 fl (35.1-43.9); Red Blood Count 4.49 M/mm3 (4.2-5.4); White Blood Count 5.9 K/mm3 (4.4-11.0)
[2019-04-17 14:51] LABS: ALB/GLOB Ratio 0.9 RATIO (0.9-2.4); AST(SGOT) 25 U/L (15-37); Alanine Aminotransfer ALT/SGPT 31 U/L (13-56); Albumin, Serum 3.8 g/dL (3.2-5.0); Alkaline Phosphatase 60 U/L (45-117); Anion Gap 4 (5-15); BUN 16 mg/dL (7-18); BUN/Creat Ratio 16.9 RATIO (10-20); Calcium,Total 9.3 mg/dL (8.5-10.1); Chloride 101 mmol/L (98-107); Creatinine, Serum 0.94 mg/dL (0.55-1.02); EST Glomerular Filtration Rate 61 mL/min (>60); Est Glom Filt Rate - Afr Amer 74 mL/min (>60); Globulin 4.3 g/dL (2.2-4.2); Glucose 93 mg/dL (74-106); Potassium 3.6 mmol/L (3.5-5.1); Protein, Total 8.1 g/dL (6.4-8.2); Sodium Level 138 mmol/L (136-145)
== END ==
PROVIDERS: Family Provider Family Medicine; PCP Family Medicine; Referring Provider Internal Medicine Rheumatology; Visit Provider Internal Medicine Rheumatology
DX: M06.4 Inflammatory polyarthropathy (principal); Z79.899 Other long term (current) drug therapy; M17.0 Bilateral primary osteoarthritis of knee; E78.5 Hyperlipidemia, unspecified; R51 Headache; I10 Essential (primary) hypertension; I34.1 Nonrheumatic mitral (valve) prolapse
CPT/HCPCS: 36415; 80053; 85025

== ENCOUNTER 2024-06-23 07:50 | Day surgery (SDC) | payer MEDICARE, SELFPAY ==
--- NOTE | 2024-06-13 08:06 | PAT.ANESEVAL ---
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 When Was Last Pacemaker Check QUESTION #4 FULL TEXT: You/Your Family Experience fever (hyperthermia) with Anesthesia Last Oral Intake Last Oral intake: Last Oral Intake NPO since Meds taken in AM with sips of water? Meds patient instructed to take am of surgery PONV PONV - facilities specialist: PONV - facilities specialist Female Yes 06/12/24 09:26 HX of Motion Sickness No 06/12/24 09:26 HX of N/V After Surgery Yes 06/12/24 09:26 Non-Smoker Yes 06/12/24 09:26 Duration of Surgery greater Yes 06/12/24 09:26 than 60 minutes Number of Risk Factors 4 06/12/24 09:26 PONV Score Severe Risk 06/12/24 09:26 Respiratory Assessment Respiratory Assessment - facilities specialist: Respiratory Tract Infection Hx - facilities specialist Hx Respiratory Tract Infection Yes: SINUS INFECTION 05/09/ 06/12/24 09:26 24 STOP Sleep Apnea STOP Sleep Apnea - facilities specialist: STOP Sleep Apnea - facilities specialist Hx Hypertension Yes: CONTROLLED WITH MED 06/12/24 09:26 Hx Sleep Apnea No 06/12/24 09:26 CPAP BIPAP Do you snore loudly (louder No 06/12/24 09:26 than talking or can be heard Do you often feel tired/ No 06/12/24 09:26 fatigued/ sleepy during daytime? Has anyone observed you stop No 06/12/24 09:26 breathing during sleep? STOP Results Negative 06/12/24 09:26 QUESTION #5 FULL TEXT : Do you snore loudly (louder than talking or can be heard through closed doors)? 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 Specify any problems Hx of Preganancy in last 3 N/A 06/12/24 09:26 Months Nurse Filling Out Transfusion NBUCHER 06/12/24 09:26 & Questions: Date: 06/12/24 06/12/24 09:26 Time: :28 06/12/24 09:26 Patient unable to answer at this time (ie. confused, unrespo /Reproduction History /Reproductive History - facilities specialist: /Reproductive Hx- facilities specialist Hx Now No 06/12/24 09:26 Gestational Age (in weeks): EDC: Hx Hx Para Hx Section SAB No 06/12/24 09:26 [facility] Medical History (Updated 06/12/24 @ 09:40 by Montse Powell) Cancer MRSA infection Arthritis Rheumatoid arthritis High cholesterol Migraine headache Gastric reflux Heartburn Non-smoker History of edema History of echocardiogram Home Medications ?Medication ?Instructions ?Recorded ?Last Taken ?Type aspirin 81 mg tablet,delayed 81 mg PO DAILY HEART HEALTH 01/15/18 01/11/18 History release atenolol 50 mg-chlorthalidone 25 1 ea PO 1800 BP 01/15/18 01/21/18 History mg tablet calcium carbonate 1,500 mg PO 1200 BONES 01/15/18 Unknown History cholecalciferol (vitamin D3) 50 2,000 unit PO DAILY SUPPLEMENT 01/15/18 Unknown History mcg (2,000 unit) capsule (Vitamin D3) loperamide 2 mg capsule 2 mg PO Q6H PRN PRN Loose Stools 01/15/18 Unknown History ngrelmeq-msb-jvybw acid 0.4 1 ea PO DAILY SUPPLEMENT 01/15/18 Unknown History mg-lycopene 300 mcg-lutein 250 mcg tablet (Centrum Silver) simvastatin 40 mg tablet 40 mg PO QHS CHOLESTEROL 01/15/18 Unknown History hydroxychloroquine 200 mg tablet 200 mg PO BID 06/12/24 Unknown History potassium 99 mg tablet 198 mg PO DAILY 06/12/24 Unknown History Allergy/AdvReac Type Severity Reaction Status Date / Time bee venom protein (honey bee) Allergy Swelling Verified 06/12/24 09:21 rizatriptan (From Maxalt) Allergy Swelling Verified 06/12/24 09:21 tramadol (From Ultram) AdvReac Severe Nausea/Vom/ Verified 06/12/24 09:21 Diarrhea amoxicillin (From Augmentin) AdvReac Intermediate Rash Verified 06/12/24 09:21 clavulanic acid (From AdvReac Intermediate Rash Verified 06/12/24 09:21 Augmentin) Surgical History (Updated 06/12/24 @ 09:40 by Montse Powell) History of esophagogastroduodenoscopy (EGD) History of colonoscopy History of spinal fusion (~2013) History of wisdom tooth extraction History of head, eyes, ears, nose, and throat (HEENT) surgery History of hysterectomy History of open reduction and internal fixation (ORIF) procedure History of endoscopic sinus surgery (~2017) Social History Smoking Status: Never smoker Audit: Pertinent Findings Pertinent Findings Consult pertinent findings: Cardiology 04/13/2024 hypertension hyperlipidemia preop cardiovascular exam cardiac risk index score of 0 stress test negative at 4 METS Recommendation Anesthesia Recommendation Anesthesia recommendation: OPTIMIZED for anesthesia
[2024-06-23] VITALS (9 sets, daily range): BP systolic 131–148; BP diastolic 56–91; PULSE 56–66; RESP 16; TEMP 36.1–36.6; O2SAT 91–97; BMI 31.6
[2024-06-23] MEDS: 0.9% Normal Saline (1000mL) 1,000 ML 15 ML IV (08:09)
--- NOTE | 2024-06-23 08:28 | PCM.PRE.AN2 ---
ASA Classification* ASA Classification ASA Classification: 3 Assessment & Plan Anesthesia* Anesthesia Assessment Anesthesia Assessment: Discussed sedation and/or anesthesia options, risks, benefits, and alternatives with patient/parents/legal guardian/POA. Questions invited. The patient/parents/legal guardian/POA seems to understand and agrees to proceed with anesthesia plan. Reviewed the physical assessment, medical history, allergy history and patient home medications list prior to surgery/procedure/anesthetic and documented any changes. Performed airway and anesthesia risk assessments. Anesthesia Type Anesthesia Type: General and Block (Patient is consented for axillary block.) History Source History Obtained from:: Patient and Chart Anesthesia Focused Assessment* Temperature: 97.3 F Pulse Rate: 66 Blood Pressure: 144/71 Respiratory Rate: 16 Pulse Ox: 97 Oxygen Delivery Method: Room Air Airway Assessment Mouth opens: >3 cm Mallampati Score: IV Teeth Condition: Missing (Patient has several missing teeth. Rest of the teeth are tight.) Neck Range of motion (ROM): Limited ROM (Severely limited extension) Focused Labs Anesthesia Preop lab: CBC WBC 5.9 K/mm3 (4.4-11.0) 04/17/19 12:56 RBC 4.49 M/mm3 (4.2-5.4) 04/17/19 12:56 Hgb 13.6 g/dL (12.0-15.0) 04/17/19 12:56 Hct 40.7 % (37-47) 04/17/19 12:56 Plt Count 254 K/mm3 (150-450) 04/17/19 12:56 CHEMISTRY Potassium 3.6 mmol/L (3.5-5.1) 04/17/19 12:56 Sodium 138 mmol/L (136-145) 04/17/19 12:56 BUN 16 mg/dL (7-18) 04/17/19 12:56 Creatinine 0.94 mg/dL (0.55-1.02) 04/17/19 12:56 Glucose 93 mg/dL (74-106) 04/17/19 12:56 COAG PT 13.5 SECONDS (11.7-14.9) 01/22/18 06:28 Pre-Assessment Diagnosis/Proposed Procedure Planned Operative Procedure(s): (L) First Carpal Metacarpal Joint Arthroplasty, Trapeziectomy, Ligament Reconstruction Tendon Interposition Anesthesia History 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 When Was Last Pacemaker Check QUESTION #4 FULL TEXT: You/Your Family Experience fever (hyperthermia) with Anesthesia Last Oral Intake Last Oral intake: Last Oral Intake NPO since 20:00 06/23/24 08:06 Meds taken in AM with sips of water? 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 Female Yes 06/12/24 09:26 HX of Motion Sickness No 06/12/24 09:26 HX of N/V After Surgery Yes 06/12/24 09:26 Non-Smoker Yes 06/12/24 09:26 Duration of Surgery greater Yes 06/12/24 09:26 than 60 minutes Number of Risk Factors 4 06/12/24 09:26 PONV Score Severe Risk 06/12/24 09:26 Height & Weight Height & Weight: Anesthesia: Height & Weight Height 5 ft 6 in 06/23/24 08:06 Weight: 89 kg 06/23/24 08:06 Body Mass Index (BMI) 31.6 06/23/24 08:06 Respiratory Assessment Respiratory Assessment - screw driver operator: Respiratory Tract Infection Hx - screw driver operator Hx Respiratory Tract Infection Yes: SINUS INFECTION 05/09/ 06/12/24 09:26 24 Any additional information?: Yes Hx Respiratory Tract Infection: No STOP Sleep Apnea STOP Sleep Apnea - screw driver operator: STOP Sleep Apnea - screw driver operator Hx Hypertension Yes: CONTROLLED WITH MED 06/12/24 09:26 Hx Sleep Apnea No 06/12/24 09:26 CPAP BIPAP Do you snore loudly (louder No 06/12/24 09:26 than talking or can be heard Do you often feel tired/ No 06/12/24 09:26 fatigued/ sleepy during daytime? Has anyone observed you stop No 06/12/24 09:26 breathing during sleep? STOP Results Negative 06/12/24 09:26 QUESTION #5 FULL TEXT : Do you snore loudly (louder than talking or can be heard through closed doors)? 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 Specify any problems Hx of Preganancy in last 3 N/A 06/12/24 09:26 Months Nurse Filling Out Transfusion NBUCHER 06/12/24 09:26 & Questions: Date: 06/12/24 06/12/24 09:26 Time: 06/12/24 09:26 Patient unable to answer at this time (ie. confused, unrespo /Reproduction History /Reproductive History - screw driver operator: /Reproductive Hx- screw driver operator Hx Now No 06/12/24 09:26 Gestational Age (in weeks): EDC: Hx Hx Para Hx Section SAB No 06/12/24 09:26 Active Medications Active Medications: Current Medications Generic Name Dose Route Start Last Admin Trade Name Freq PRN Reason Stop Dose Admin Cefazolin Sodium 2 gm/ N/A 20 mls @ 400 mls/hr 06/23/24 09:30 IV 06/23/24 09:32 PREOP ONE Sodium Chloride 1,000 mls @ 15 mls/hr 06/23/24 07:55 06/23/24 08:09 IV 06/28/24 21:14 15 mls/hr .Q48H MICHELLE Administration Protocol PFSH Medical History Cancer MRSA infection Arthritis Rheumatoid arthritis High cholesterol Migraine headache Gastric reflux Heartburn Non-smoker History of edema History of echocardiogram Home Medications ?Medication ?Instructions ?Recorded ?Last Taken ?Type aspirin 81 mg tablet,delayed 81 mg PO DAILY HEART HEALTH 01/15/18 06/17/24 History release atenolol 50 mg-chlorthalidone 25 1 ea PO 1800 BP 01/15/18 01/21/18 History mg tablet calcium carbonate 1,500 mg PO 1200 BONES 01/15/18 Unknown History cholecalciferol (vitamin D3) 50 2,000 unit PO DAILY SUPPLEMENT 01/15/18 Unknown History mcg (2,000 unit) capsule (Vitamin D3) loperamide 2 mg capsule 2 mg PO Q6H PRN PRN Loose Stools 01/15/18 Unknown History ifsowmny-dvk-jazsa acid 0.4 1 ea PO DAILY SUPPLEMENT 01/15/18 Unknown History mg-lycopene 300 mcg-lutein 250 mcg tablet (Centrum Silver) simvastatin 40 mg tablet 40 mg PO QHS CHOLESTEROL 01/15/18 Unknown History hydroxychloroquine 200 mg tablet 200 mg PO BID 06/12/24 Unknown History potassium 99 mg tablet 198 mg PO DAILY 06/12/24 Unknown History Allergy/AdvReac Type Severity Reaction Status Date / Time amoxicillin (From Augmentin) Allergy Intermediate Rash Verified 06/23/24 08:05 clavulanic acid (From Allergy Intermediate Rash Verified 06/23/24 08:05 Augmentin) bee venom protein (honey bee) Allergy Swelling Verified 06/23/24 08:05 rizatriptan (From Maxalt) Allergy Swelling Verified 06/23/24 08:05 tramadol (From Ultram) AdvReac Severe Nausea/Vom/ Verified 06/23/24 08:05 Diarrhea Surgical History History of esophagogastroduodenoscopy (EGD) History of colonoscopy History of spinal fusion (~2013) History of wisdom tooth extraction History of head, eyes, ears, nose, and throat (HEENT) surgery History of hysterectomy History of open reduction and internal fixation (ORIF) procedure History of endoscopic sinus surgery (~2017) Social History Smoking Status: Never smoker Review of Systems (Anesthesia) ROS Narrative System reviewed and no additional complaints, except as documented.
[2024-06-23] MEDS: Cefazolin 2 GM in Syringe IV (08:55)
--- NOTE | 2024-06-23 09:30 | RAD_ITS ---
STUDY: X-RAY - LEFT WRIST REASON FOR EXAM: Female, 79 years old. FIRST CARPAL METACARPAL ARTHROPLASTY, TRAPEZIECTOMY, LIG RECON TECHNIQUE: 3 view(s) of the wrist were obtained. COMPARISON: None. FINDINGS: Fluoroscopy the left wrist was utilized operating room during trapezia ectomy and 5 images submitted for interpretation. . RAD/Wrist min 3 Views IMPRESSION: Fluoroscopy during trapezia ectomy. Electronically Signed: Dylan Correa MD at 18:22 EST ,
--- NOTE | 2024-06-23 09:30 | BON_PTH ---
PATIENT: KAYLIE GODWIN [place] [facility] [place][id number] AGE/SX: 79/F ROOM: RE06/23/[address]: Dr. Rahul Villanueva DO : 1945 BED: DIS: 06/23/2024 SPEC #: [id number] RECD: 06/23/24 13:07 STATUS: KATHY REBelinda #: [id number] IJEOMA: 06/23/24 09:[address]: Rahul Villanueva DEPT: SURGICAL PATHOLOGY RECD BY: Kym Ashton ENTERED: 06/23/24 13:56 SP TYPE: Bone OTHR DR: Dr. Pepe Ramires DO Tissues: Bone of hand, NOS Procedures: Decalcification bone/plaque Surgery Specimen Level IV HEADER OPERATION: Carpal metacarpal joint arthroplasty, trapeziectomy PRE-OP DIAGNOSIS: Left trapezium TISSUE SUBMITTED: Left trapezium MICROSCOPIC DIAGNOSIS Left trapezium, metacarpal joint arthroplasty, trapeziectomy: Pieces of bone with degenerative and reactive changes. Adherent pieces of synovial tissue with reactive changes. 06/26/2024 MICROSCOPIC DESCRIPTION Slides are reviewed. GROSS DESCRIPTION Received in fixative is one container labeled with the patient's name and designated Left trapezium. The specimen consists of multiple pieces of bone that measure in aggregate 3.0 x 3.0 x 1.0 cm. The specimen is totally submitted in two cassettes. 06/24/2024 TC:5 CPT:10797,30124
--- NOTE | 2024-06-23 10:29 | PCM.OPRPT ---
Operative Report (Standard) Operative Information Date of Procedure: 06/23/24 Pre-Operative Diagnosis: Left first carpometacarpal joint osteoarthritis Post-Operative Diagnosis: Left first carpometacarpal joint osteoarthritis Surgery/Procedure Performed: Left first carpometacarpal joint arthroplasty with trapezium excision, ligament reconstruction tenderness position with flexor carpi radialis transfer shipping clerk packing: Yes Room Service Clerk: Zoie Kay Tasks completed by paralegal assistant: Opening & closing, Implanting device, Hemostasis: Electrocautery and Retracting Type of Anesthesia: General/Regional RN Documented Start/Stop Times: Operation Date: 06/23/24 09:30 Case Time Into Pre-Op 06/23/24 07:54 Anesthesia Start 06/23/24 08:55 Into Room 06/23/24 08:55 Procedure Start 06/23/24 09:09 Procedure End 06/23/24 10:09 Anesthesia End 06/23/24 10:14 Out of Room 06/23/24 10:14 Into Recovery 06/23/24 10:16 Procedure Start Time: 09:09 Procedure Stop Time: 10:09 Select all DRAINS/GRAFTS/IMPLANTS that apply: Implanted device Implanted device details: Arthrex bio composite 4 x 10 mm tenodesis screw Estimated Blood Loss: 10 cc Specimen collected: Yes Description of specimen(s) removed: Left trapezium Description of surgery: Description of procedure: Patient was seen in preoperative holding area. She was identified by name, medical record number, date of . The operative extremity was marked with a surgical marker. We confirmed informed consent with the patient and all questions were answered to his satisfaction. Axillary block was then administered by anesthesia staff. At time of her procedure, patient was brought to the operative suite and positioned supine a standard operating table. All bony prominences were well-padded. General anesthesia was induced and endotracheal tube placed. The left upper extremity was then prepped for surgery by first applying a well-padded pneumatic tourniquet to the left upper arm. The hand table attached to the left side of the table. We spun the bed 90 degrees. The left upper extremity was then prepped and draped in normal, sterile orthopedic fashion. 2 g Ancef was administered prior to incision by anesthesia staff. We performed a timeout at this point confirming side, site, and operation to be performed. No concerns voiced and elected to proceed. We first exsanguinated the left upper extremity with a an Esmarch bandage. Tourniquet was inflated to 250 mmHg were made up throughout the majority of the case. I first made my incision overlying the anatomic snuffbox of the left dorsal first CMC. Incision was carried sharply through skin and subcutaneous tissue. Superficial veins were cauterized. Superficial sensory branches from the radial nerve were protected and retracted. The interval between the extensor pollicis brevis and abductor pollicis longus was developed. I identified the first dorsal compartment retinaculum which was released along its dorsal aspect. We bluntly dissected through the fascia down to the level of the dorsal branch of the radial artery. I retracted this dorsally after cauterizing capsular branches from the radial artery using bipolar cautery. We then identified the dorsal radial capsule of the first CMC. This was split in line with the incision and elevated subperiosteally. The trapezium was then freed from capsular attachment sharply with 15 blade scalpel and subsequently with a McGlamry elevator. We were able to free the trapezium circumferentially and excised the trapezium en bloc. This was examined and had severe degenerative changes on the distal articular surface at the first CMC. The trapezoid was examined and appeared unremarkable. The FCR was identified in the wound. The wound was copiously irrigated with normal saline and any loose pieces of cartilage were debrided. Orthogonal fluoroscopy confirmed complete trapezium excision. I then turned my attention to the flexor carpi radialis and the left mid to distal forearm. A transverse incision approximately 5 mm was made overlying the flexor carpi radialis tendon. Superficial vein was identified and cauterized with bipolar cautery. I was then able to bluntly dissect through the tendon sheath down the level of the tendon. A Ragnell retractor was placed underneath the tendon and the tendon was pulled out of the wound. I sharply transected the tendon at the level of the incision. I then used a right angle hemostat to retrieve the flexor carpi radialis tendon from the distal wound. I split the flexor carpi radialis tendon in line with its fibers to obtain 2 distinct limbs. One limb was tagged in whipstitch fashion with a #2 Ethibond for transfer for our planned tendon transfer. I then prepared our bone tunnel for transfer. A drill pin was utilized to drill dorsal radial to ulnar across the base of the first metacarpal. My entry point was approximately 1 cm from the articular surface. This was directed to the insertion point of the [place] beak ligament. Proper trajectory was confirmed. FCR was protected through the drilling process with a McGlamry elevator. A cannulated drill bit was then placed over top of the drill pin and drilled bicortically. A nitinol wire was used to past the suture tack to the FCR tendon slip through the bone tunnel retrieving out the dorsoradial portion. I then applied an abduction force across the base the first metacarpal and placed it with my index finger in the space of the former trapezium with appropriate tension. My department assistant pulled some traction on the thumb. I pulled traction on the slip of the FCR and the Arthrex Bio-Tenodesis screw was then placed to secure the tendon. Minimal amount of pistoning and no significant subsidence was noted after the tendon was secured. I then placed a running stitch through both slips of the tendon securing it to the palmar first CMC wrist capsule. Suture was tightened achieving an accordion configuration of the remaining FCR tendon to achieve an interposition graft. We then deflated the tourniquet. Hemostasis was excellent. I closed the capsule in watertight fashion with an 3-0 Ethibond suture. Subcutaneous layers were reapproximated with 3-0 Vicryl in a running subcuticular Monocryl. Dermabond was used to finally reapproximate skin. Sterile compression dressing was applied. A well-padded thumb spica fiberglass splint was then applied. Patient tolerated procedure well without apparent complication. She was subsequently extubated and transferred to PACU in stable condition. Need for skilled department assistant: Zoie Kay PA-C was critical to the outcome of the case. During the course of the procedure the physician department assistant played a vital role. Her intimate knowledge of my steps in the procedure aided in safe and expedient completion of the procedure. The PA played a vital role in positioning particularly in obtaining the appropriate positioning. The PA was also vital in the retraction of soft tissues during the exposure and protecting vital structures. The PA was also vital assisting with hardware placement. She also played a vital role in closure and splint application with my direct supervision. Post Operative Plan: Weightbearing: Nonweightbearing operative extremity Antibiotics: Ancef 2 g x 1 dose preoperatively DVT Prophylaxis: Aspirin 81 mg by mouth twice daily x 2 weeks beginning postoperative day #1 Bernard: None Dressing: Maintain splint, keep it clean dry and intact until follow-up X-Rays: 2 weeks postop in the office in splint Pain Medication: Oxycodone Rx upon discharge Follow-up: 2 weeks post-operatively with me in the office Surgical Findings: Severe degenerative joint disease at the first CMC. Stable first metacarpal base following ligament reconstruction tendon interposition. Complications Complications: No Admit VTE Documentation VTE Present on Admission: No VTE Mechan Device Prophylaxis: SCD's VTE Pharm Prophylaxis ordered?: Yes
--- NOTE | 2024-06-23 10:51 | PCM.POSTANE2 ---
Anesthesia Postop Eval I Sum Anesthesia Postop Eval I Summary Anesthesia Postop Eval I Summary: Anesthesia Postop Eval I: Assessment Summary Airway patent Spontaneous unlabored respirations Mental status nausea Vomiting Anesthesia Postop Eval I: Fluid Summary Crystalloid volume administer (ml) Colloids volume administered ( ml) Blood Product volume administered (ml) Total IV fluid infused Anesthesia Postop Eval I: Summary Notes Anesthesia Complication Anesthesia Complication Comment: Post-operative progress note Anesthesia: Postop Eval II Evaluation Mental status: Awake and Calm Pain Level: 1 nausea: No Vomiting: No Complications Anesthesia Complication: No
--- NOTE | 2024-06-23 12:38 | POSTOPAN2_ITS ---
Anesthesia Postop Eval I Sum Postop Eval Completion status Anesthesia document: Postop Eval 1 completed: Yes Anesthesia Postop Eval I Summary Anesthesia Postop Eval I Summary: Anesthesia Postop Eval I: Assessment Summary Airway patent Yes 06/23/24 12:38 FUNDRAISING COORDINATOR.MDOT Spontaneous unlabored Yes 06/23/24 12:38 FUNDRAISING COORDINATOR.MDOT respirations Mental status Awake,Calm 06/23/24 12:38 FUNDRAISING COORDINATOR.MDOT nausea No 06/23/24 12:38 FUNDRAISING COORDINATOR.MDOT Vomiting No 06/23/24 12:38 FUNDRAISING COORDINATOR.MDOT Anesthesia Postop Eval I: Fluid Summary Crystalloid volume administer 900 06/23/24 12:38 FUNDRAISING COORDINATOR.MDOT (ml) Colloids volume administered ( ml) Blood Product volume administered (ml) Total IV fluid infused 900 06/23/24 12:38 FUNDRAISING COORDINATOR.MDOT Anesthesia Postop Eval I: Summary Notes Anesthesia Complication No 06/23/24 12:38 FUNDRAISING COORDINATOR.MDOT Anesthesia Complication Comment: Post-operative progress note Anesthesia: Postop Eval II Evaluation Mental status: Awake and Calm Pain Level: 0 nausea: No Vomiting: No Complications Anesthesia Complication: No
--- NOTE | 2024-06-23 12:38 | PCM.POST.ANE ---
Anesthesia: Postop Eval I Current Vital Signs Temperature: 97 F Pulse Rate: 60 Blood Pressure: 133/91 Respiratory Rate: 16 Pulse Ox: 92 Oxygen Delivery Method: Room Air Assessment Airway patent: Yes Spontaneous unlabored respirations: Yes Mental status: Awake and Calm nausea: No Vomiting: No Anesthesia Complication: No Fluid Hydration Crystalloid volume administer (ml): 900 Total IV fluid infused: 900 Progress Note Anesthesia document: Postop Eval 1 completed: Yes
--- NOTE | 2024-06-23 12:38 | PCM.POSTANE2 ---
Anesthesia Postop Eval I Sum Postop Eval Completion status Anesthesia document: Postop Eval 1 completed: Yes Anesthesia Postop Eval I Summary Anesthesia Postop Eval I Summary: Anesthesia Postop Eval I: Assessment Summary Airway patent Yes 06/23/24 12:38 PATIENT TRANSPORT OFFICER.MDOT Spontaneous unlabored Yes 06/23/24 12:38 PATIENT TRANSPORT OFFICER.MDOT respirations Mental status Awake,Calm 06/23/24 12:38 PATIENT TRANSPORT OFFICER.MDOT nausea No 06/23/24 12:38 PATIENT TRANSPORT OFFICER.MDOT Vomiting No 06/23/24 12:38 PATIENT TRANSPORT OFFICER.MDOT Anesthesia Postop Eval I: Fluid Summary Crystalloid volume administer 900 06/23/24 12:38 PATIENT TRANSPORT OFFICER.MDOT (ml) Colloids volume administered ( ml) Blood Product volume administered (ml) Total IV fluid infused 900 06/23/24 12:38 PATIENT TRANSPORT OFFICER.MDOT Anesthesia Postop Eval I: Summary Notes Anesthesia Complication No 06/23/24 12:38 PATIENT TRANSPORT OFFICER.MDOT Anesthesia Complication Comment: Post-operative progress note Anesthesia: Postop Eval II Evaluation Mental status: Awake and Calm Pain Level: 0 nausea: No Vomiting: No Complications Anesthesia Complication: No
== END 2024-06-23 11:48 | disposition home or self-care (01) ==
LOC: SDC 07:52 → AC 07:54
PROVIDERS: Referring Provider Student in an Organized Health Care Education/Training Program; Visit Provider Student in an Organized Health Care Education/Training Program
PROC: (CPT 25447; principal; 2024-06-23 09:15)
DX: M18.12 Unilateral primary osteoarthritis of first carpometacarpal joint, left hand (principal); Z79.82 Long term (current) use of aspirin; Z79.899 Other long term (current) drug therapy; I10 Essential (primary) hypertension; E78.00 Pure hypercholesterolemia, unspecified
CPT/HCPCS: 25447; 26480; 64450; 01830; 73110; 76000; 88305; 88311; J2405

== ENCOUNTER 2024-07-22 12:40 | Outpatient (RCR) | payer MEDICARE, SELFPAY ==
--- NOTE | 2024-07-23 08:00 | HP.OTEVAL ---
Patient's Visit Information Visit Information Visit Information: KAYLIE GODWIN is a 79 year old F, referred to Occupational Therapy by REHAN Duran, with a diagnosis of left Unilateral primary osteoarthritis of 1st CMC joint. Date of Evaluation: 07/22/24 Occupational Therapist: Sammie Rodríguez, TITUS/Brittany, CHT Subjective Subjective: This 79 year old female was seen for OT eval dx with left unilateral primary osteoarthritis of first carpometacarpal joint. pt arrives 5 weeks and 1 days s/p left cmc arthroplasty pt states she did have a cortisone injection in november or december- but it did not improve her thumb- pt opted to have sx. CMC arthroplasty 06/23/24 pt arrives for custom orthosis as she is going to have her therapy in [place] as she does not drive. Pain left thumb: Current Pain Intensity: 3 Pain Intensity Range: 3 ROM Wrist: right 65/65 left 30/20 CMC: right15 left 5* MP: right 50 left 20 IP: right 35 left 15 Strength Strength Comments: strength will be tested at later date Sensation Sensation Comments: nidhi Quick DASH-Disab of Arm,Shoulder& Hand Quick DASH Score: 68.1800 Goals Goal:100% adherence to protocol: Yes Goal:Daily scar massage when approriate: Yes Goal:ROM equal to unaffected hand: Yes Goal:Allergist/Pediatric Pulmonologist/Pinch strength at least 75% of unaffected hand: Yes Goal:No pain with affected hand use: Yes Rehabilitation General Assessment: pt arrives s/p 5 weeks and 2 days following a left CMC arthroplasty- pt arrives with cast in need of custom orthosis to allow for support and protection while cmc heals. pt is limited with all ADLs due to inability to use left hand due to recent sx. pt demo need for skilled OT services 1-2x week for 8 weeks to return pt to her PLOF. Today therapist ed. pt on need of custom orthosis for night use for next 12 weeks- will wear during the day for 6 weeks and transition to comfort cool thumb brace week 6 for daily tasks- Today therapist opal. custom thumb spica orthosis- ed pt in precautions and use- pt demo understanding and agree to POC. Rehabilitation Potential: Good Anticipated Interventions Anticipated Interventions: A/AAROM/PROM, Strengthening, Scar Care, Triggerpoint Release, Modalities, Orthoses, Joint Protection/Energy Conservation, Ergonomic Education, Fine Motor Coord/Rafal, Education re assistive Equipment, Education re Diagnosis and Home Program Visit Plan General Plan: week 4 Begin MP and IP thumb flexion and extension with cmc SUPPORTED OK for Full wrist ROM Week 6 Begin gentle thumb CMC ROM PROM of wrist Pre-opal hand based thumb orthosis of pts choice for daytime Begin retraining of stable CMC position. Week 7 20-30* of MP flexion is adequate Dr. Tong does not want HYPEREXTENSION at the MP IF there is less than 20-30* of MP flexion, can begin gentle PORM for MP flexion only supporting CMC Week 10 if pt is progressing with finger and wrist motion and is able to demonstrate ability to maintain a stable thumb, may begin hand strengthening. If thumb stability in not achieved at this time * HOLD * on strengthening until week 12 s/p ALL Strengthening is to be performed as tolerated and pain free TEXT: Thank you for the opportunity to evaluate your patient. For Medicare and Medicare HMO plans, please review the plan of care and approve it. It will need to be FAXED BACK to us at [phone] for Medicare purposes. Please let me know if there are questions or concerns regarding this plan of care. Physician Signature: Date:
--- NOTE | 2024-12-22 16:04 | HP.OT.NRP ---
Patient Information Patient Information: KAYLIE GODWIN was seen in my office for initial evaluation on 07/22/24. The following Plan of Care was established for this patient: Anticipated Interventions Anticipated Interventions: A/AAROM/PROM, Strengthening, Scar Care, Triggerpoint Release, Modalities, Orthoses, Joint Protection/Energy Conservation, Ergonomic Education, Fine Motor Coord/Rafal, Education re assistive Equipment, Education re Diagnosis and Home Program Last Seen Last Seen: This patient was last seen in our office 07/22/24. Pertinent comments regarding their Occupational therapy will appear below: Pt seen for eval only- no further apts set. pt d.c due to time lapse in services. At this point I will be discontinuing this patient from occupational therapy. I would be happy to see this patient again in the future if found appropriate by the physician. Thank you! Sammie Rodríguez, OTR/L, CHT
== END 2024-07-22 19:00 | disposition home or self-care (01) ==
LOC: OT 12:40
PROVIDERS: Visit Provider Physician Assistant Surgical
DX: M18.12 Unilateral primary osteoarthritis of first carpometacarpal joint, left hand (principal)
CPT/HCPCS: 97166; 97760